=== PATIENT | female | born 1980 | race Caucasian/White ===

== ENCOUNTER → 2024-05-10 18:33 | Outpatient (CLI) | payer OTHER, SELFPAY ==
--- NOTE | 2024-05-10 18:35 | DI.MRI.S_ITS ---
PROCEDURE: MR WRIST LT WO CON INDICATIONS: pain in left wrist TECHNIQUE: Noncontrast coronal proton density fast spin echo and T2 fast spin echo with fat saturation; coronal 3-D gradient echo, axial T1 spin echo and T2 fast spin echo with fat saturation, sagittal T1 spin echo through the wrist. COMPARISON: None. FINDINGS: Image quality: Excellent. Bones and cartilage: The carpal bones are normally aligned. No bone marrow contusions or fractures. No evidence for avascular necrosis. Overlying cartilage surfaces appear normal. Carpal ligaments: The scapholunate and lunotriquetral ligaments appear intact. In the absence of intra-articular contrast, the extrinsic carpal ligaments are not well identified. On sagittal images, the pisohamate ligament appears intact. Triangular fibrocartilage complex: There is signal abnormality involving triangular fibrocartilage near its ulnar insertion. The adjacent meniscal homolog appears normal in the absence of intra-articular contrast. The extensor carpi ulnaris tendon is thickened at the level of ulnar styloid tip with intrasubstance T2 hyperintense signal. Tendons and soft tissues: The carpal tunnel structures appear normal, including the median nerve. The ulnar nerve appears normal within Guyon's canal. Small amount of fluid distending tendon sheath of 2nd extensor tendon compartment at the level of proximal carpal row is seen. Rest of the extensor tendons are intact. There is suggestion of a 5 x 3 mm ganglion cyst over volar aspect of distal scaphoid/capitate. There is also a 4 mm cyst over volar aspect of 2nd and 3rd metacarpal bases. IMPRESSION: 1. No marrow edema. No wrist fracture or dislocation. No evidence of avascular necrosis. 2. Suggestion of triangular fibrocartilage complex tear near its ulnar insertion. 3. Tendinosis and low-grade intrasubstance partial-thickness tear involving extensor carpi ulnaris tendon at the level of ulnar styloid. Low-grade tenosynovitis involving 2nd extensor compartment over dorsal aspect of carpal bones. 4. 2 tiny ganglion cysts over volar aspect of left wrist as above. 5. Scapholunate and lunotriquetral ligaments are intact. Dictated by: Joseph Vigil M.D. on 05/13/2024 at 20:03 Approved by: Joseph Vigil M.D. on 05/13/2024 at 20:12
== END ==
LOC: MRI 18:34
PROVIDERS: PCP Preventive Medicine Aerospace Medicine; Referring Provider Preventive Medicine Aerospace Medicine; Visit Provider Preventive Medicine Aerospace Medicine
DX: S66.812A Strain of other specified muscles, fascia and tendons at wrist and hand level, left hand, initial encounter (principal); M65.842 Other synovitis and tenosynovitis, left hand; M67.432 Ganglion, left wrist; M25.532 Pain in left wrist
CPT/HCPCS: 73221

== ENCOUNTER → 2024-07-01 14:47 | Outpatient (CLI) | payer OTHER, SELFPAY ==
--- NOTE | 2024-07-01 14:48 | DI.RAD.S_ITS ---
PROCEDURE: FL ARTHROGRAM HIP RT INDICATIONS: PAIN IN RT HIP TECHNIQUE: The indications, alternatives, benefits, risks, and complications of the procedure were explained to the patient. Written informed consent was obtained and placed in the chart. The hip was examined fluoroscopically with the legs fixed in slight internal rotation, and a site for needle placement chosen for entry into the hip joint from an anterior approach. Care was taken to locate the common femoral artery and vein beforehand. The skin was prepped and draped in a sterile fashion, and 1% Lidocaine infiltrated from skin down to joint capsule. A spinal needle was inserted into the joint. This was followed by approximately 10 mL dilute solution of a gadolinium containing MR contrast agent. The needle was removed and a dressing was applied. The patient was given postprocedural instructions and sent to the MR suite for imaging. COMPARISON: None. FINDINGS: A single fluoroscopic spot image demonstrates intra-articular location of injected iodinated contrast. IMPRESSION: Successful fluoroscopically guided administration of dilute Gadolinium solution into the hip joint for MR arthrogram. Dictated by: Joseph Vigil M.D. on 07/01/2024 at 17:17 Approved by: Joseph Vigil M.D. on 07/01/2024 at 17:18
--- NOTE | 2024-07-01 14:48 | DI.MRI.S_ITS ---
PROCEDURE: MR HIP RT W CON INDICATIONS: PAIN IN RT HIP TECHNIQUE: After the administration of 10 mL of dilute intra-articular Gadolinium contrast, coronal STIR of the bony pelvis; coronal and oblique axial T1 spin echo with fat saturation, axial T2 fast spin echo with fat saturation, sagittal T1 spin echo with and without fat saturation of the involved hip. COMPARISON: None. FINDINGS: Image quality: Excellent. Bones and joints: Bone marrow of the pelvic ring and proximal femurs show normal signal throughout. No intraosseous lesions or fractures. No avascular necrosis of the femoral head. The visualized lower lumbar spine appears normally aligned. Tendons and ligaments: Mild distal right gluteus medius tendinosis is seen. Distal right gluteus minimus tendon is intact. No fluid distending trochanteric bursa is seen. The nearby proximal iliotibial band also appears intact. The iliopsoas tendon appears intact, without adjacent bursal fluid collections or evidence for impingement syndrome. The origin of the hamstring tendon is intact at the ischial tuberosity. Labrum and cartilage: There is mild thinning of articulating cartilage over right femoral head. Signal abnormality and fraying of superior anterior right acetabular labrum is seen consistent with labral tear. No paralabral cysts. Soft tissues: Visualized muscles demonstrate normal bulk and internal signal. Quadratus femoris muscle demonstrates no internal edema to suggest ischiofemoral impingement. The proximal sciatic neurovascular bundle appears normal adjacent to the hamstring tendons. No free pelvic fluid. Bladder wall thickness is normal. Genitourinary structures and bowel loops appear normal where visualized. IMPRESSION: 1. Finding is consistent with superior anterior right acetabular labral tear. 2. Distal right gluteus medius tendinosis at greater trochanter. No other muscle or tendon signal abnormalities. 3. No marrow edema. No fracture or dislocation. No evidence of avascular necrosis. Dictated by: Joseph Vigil M.D. on 07/01/2024 at 17:26 Approved by: Joseph Vigil M.D. on 07/01/2024 at 17:28
[2024-07-01] MEDS: LIDOCAINE 1% 20 ML INJ (16:10)
[2024-07-01] MEDS: SODIUM CHLORIDE 0.9 % 20 ML VIAL IV (16:10)
== END ==
PROVIDERS: PCP Preventive Medicine Aerospace Medicine; Referring Provider Preventive Medicine Aerospace Medicine; Visit Provider Preventive Medicine Aerospace Medicine
DX: M25.551 Pain in right hip (principal)
CPT/HCPCS: 27093; 73525; 73722; A9579